=== PATIENT | male | born 1950 | race Caucasian/White ===

== ENCOUNTER 2021-05-23 06:04 | Inpatient (IN) | payer OTHER ==
[~2021-05-23] VITALS: Ht 175.3 cm; Wt 101.6 kg
[2021-05-23 06:38] LABS: HEMOGLOBIN 15.2 gm/dl (14.0-17.5); RED BLOOD COUNT 4.52 M/UL (4.20-5.50); WHITE BLOOD COUNT 14.3 K/UL (4.5-11.0)
[2021-05-23 07:03] LABS: BUN/CREATININE RATIO 10 (0-10)
[2021-05-23] MEDS ORDERED: TYLENOL325 MG PO (12:04)
[2021-05-23] MEDS ORDERED: CLOPIDOGREL75 MG PO (12:05)
[2021-05-23] MEDS ORDERED: ENALAPRIL MALEA20 MG PO (12:05)
[2021-05-23] MEDS ORDERED: VITAMIN B-121000 MC3 PO (12:06)
[2021-05-23] MEDS ORDERED: CELEXA40 MG PO (12:06)
[2021-05-23] MEDS ORDERED: GLIPIZIDE5 MG PO (12:07)
[2021-05-23] MEDS ORDERED: OMEPRAZOLE20 MG PO (12:09)
[2021-05-23] MEDS ORDERED: METOPROLOL TAR100 MG PO (12:10)
[2021-05-23] MEDS ORDERED: OXYBUTYNIN CHLO10 MG PO (12:10)
[2021-05-23] MEDS ORDERED: XANAX0.5 MG PO (12:11)
[2021-05-23] MEDS ORDERED: AMLODIPINE BESY10 MG PO (12:12)
[2021-05-23] MEDS ORDERED: CETIRIZINE HCL10 MG PO (12:15)
[2021-05-23] MEDS ORDERED: SIMVASTATIN80 MG PO (12:15)
[2021-05-24 07:38] LABS: RED BLOOD COUNT 3.86 M/UL (4.20-5.50)
[2021-05-24] MEDS ORDERED: ZITHROMAX500 M1 IV (11:09)
[2021-05-24] MEDS ORDERED: INVANZ 1 GM VIAL1 GM IM (11:09)
[2021-05-24] MEDS ORDERED: LOPRESSOR 50 MG50 MG PO (11:09)
--- NOTE | 2021-05-24 18:26 | NUR ---
REPORT CALLED TO DUNG AT [facility].
== END 2021-05-24 18:48 | disposition home or self-care (01) | DRG 193 ==
LOC: ER1 06:04 → CDU 11:11 → M/S 15:30
PROVIDERS: Emergency Medicine; Physician Assistant Medical; ADMIT Internal Medicine
DX: J18.9 Pneumonia, unspecified organism (principal); J96.01 Acute respiratory failure with hypoxia; K80.20 Calculus of gallbladder without cholecystitis without obstruction; E11.22 Type 2 diabetes mellitus with diabetic chronic kidney disease; I12.9 Hypertensive chronic kidney disease with stage 1 through stage 4 chronic kidney disease, or unspecified chronic kidney disease; N18.30 Chronic kidney disease, stage 3 unspecified; E78.5 Hyperlipidemia, unspecified; K21.9 Gastro-esophageal reflux disease without esophagitis; K76.0 Fatty (change of) liver, not elsewhere classified; Z20.822 Contact with and (suspected) exposure to COVID-19; Z88.8 Allergy status to other drugs, medicaments and biological substances; Z80.0 Family history of malignant neoplasm of digestive organs; Z86.73 Personal history of transient ischemic attack (TIA), and cerebral infarction without residual deficits; Z87.11 Personal history of peptic ulcer disease; Z87.891 Personal history of nicotine dependence; Z98.890 Other specified postprocedural states
CPT/HCPCS: 0240U; 36415; 36600; 71045; 71250; 76705; 80048; 80053; 82550; 82553; 82803; 82962; 83735; 83874; 83880; 84484; 85025; 85027; 93005; 94664; 94760; 99285; J0456; J0696; J1335; J1644; J7030; J7050